=== PATIENT | male | born 1950 | race Caucasian/White ===

== ENCOUNTER 2022-09-26 02:05 | Emergency (ER) | payer OTHER ==
[~2022-09-26] VITALS: Ht 165.1 cm; Wt 77.1 kg
--- NOTE | 2022-09-26 02:27 | NUR ---
BLADDER SCAN DONE WITH URINE RESIDUAL OF 131ML
--- NOTE | 2022-09-26 02:31 | NUR ---
URINE SPECIMEN SENT TO LAB
[2022-09-26 03:03] LABS: BILIRUBIN,URINE NEGATIVE (NEGATIVE); COLOR,URINE YELLOW (YELLOW); LEUKOCYTE ESTERASE ,URINE NEGATIVE (NEGATIVE); NITRITE, URINE NEGATIVE (NEGATIVE); PH,URINE 5.5 (5.0-8.0); PROTEIN,URINE NEGATIVE (NEGATIVE); UGLUCOSE NEGATIVE (NEGATIVE); UROBILINOGEN,URINE 0.2 EU/dL (0.2)
[2022-09-26] MEDS ORDERED: TAMS-12 PO (03:10)
--- NOTE | 2022-09-26 03:33 | NUR ---
Patient discharged to home in stable condition. Written and verbal after care instructions given. Patient verbalizes understanding of instruction.
[2022-09-26 03:34] VITALS: BP 121/78; TEMP 98.5; O2SAT 98
== END 2022-09-26 03:35 | disposition home or self-care (01) ==
LOC: ER 02:10
DX: N40.1 Benign prostatic hyperplasia with lower urinary tract symptoms (principal); I10 Essential (primary) hypertension; E78.5 Hyperlipidemia, unspecified; I48.91 Unspecified atrial fibrillation; E11.9 Type 2 diabetes mellitus without complications; Z79.899 Other long term (current) drug therapy